=== PATIENT | female | born 1965 | race Caucasian/White ===

== ENCOUNTER 2017-03-02 02:06 | Emergency (ER) | payer OTHER ==
[~2017-03-02] VITALS: Ht 170.1 cm; Wt 93.0 kg
[~2017-03-02 02:06] MED LIST: AUGMENTIN 875-875 MG PO; CELEBREX100 MG PO; LEXAPRO20 MG PO; PERCOCET 325 MG1 TA3 PO; PREDNISONE10 MG PO; PROAIR HFA8.5 GM INH; PYRIDIUM200 M1 PO; REXULTI0.5 MG PO; ULTRAM50 MG PO; ZOFRAN ODT4 MG SL
[2017-03-02 02:11] VITALS: BP 146/72
[2017-03-02] MEDS ORDERED: CLINDAMYCIN HC300 MG PO (03:11)
== END 2017-03-02 03:47 | disposition home or self-care (01) ==
LOC: ED 02:06
DX: K04.7 Periapical abscess without sinus (principal); I10 Essential (primary) hypertension; J45.909 Unspecified asthma, uncomplicated; F32.9 Major depressive disorder, single episode, unspecified; G89.29 Other chronic pain; E66.9 Obesity, unspecified; F17.200 Nicotine dependence, unspecified, uncomplicated; Z79.899 Other long term (current) drug therapy; Z68.34 Body mass index [BMI] 34.0-34.9, adult

== ENCOUNTER → 2018-02-25 | Outpatient (CLI) | payer OTHER ==
[~2018-02-25] MED LIST changes: +CLINDAMYCIN HC300 MG PO
== END | disposition home or self-care (01) ==
LOC: RAD 15:30
DX: M51.36 Other intervertebral disc degeneration, lumbar region (principal)

== ENCOUNTER → 2018-03-23 | Outpatient (CLI) | payer OTHER | END | disposition home or self-care (01) | LOC: MRI 10:48 | DX: M96.1 Postlaminectomy syndrome, not elsewhere classified (principal) ==

== ENCOUNTER 2019-08-29 11:00 | Emergency (ER) | payer OTHER ==
[~2019-08-29] VITALS: Ht 170.1 cm; Wt 90.7 kg
[~2019-08-29 11:00] MED LIST changes: +PREDNISONE10 M1 PO; +PROVENTIL HFA6.7 GM INH
[2019-08-29 11:02] VITALS: BP 138/86
== END 2019-08-29 13:07 | disposition home or self-care (01) ==
LOC: ED 11:00
DX: S80.11XA Contusion of right lower leg, initial encounter (principal); I10 Essential (primary) hypertension; F17.200 Nicotine dependence, unspecified, uncomplicated; Z79.899 Other long term (current) drug therapy; Z90.49 Acquired absence of other specified parts of digestive tract; Z90.710 Acquired absence of both cervix and uterus; W20.8XXA Other cause of strike by thrown, projected or falling object, initial encounter; Y93.89 Activity, other specified; Y92.89 Other specified places as the place of occurrence of the external cause; Y99.8 Other external cause status

== ENCOUNTER 2020-04-04 01:05 | Emergency (ER) | payer OTHER ==
[~2020-04-04] VITALS: Ht 170.1 cm; Wt 90.7 kg
[2020-04-04 01:12] VITALS: BP 148/81
== END 2020-04-04 01:50 | disposition home or self-care (01) ==
LOC: ED 01:05
DX: M71.22 Synovial cyst of popliteal space [Baker], left knee (principal); M79.605 Pain in left leg; I10 Essential (primary) hypertension; Z79.899 Other long term (current) drug therapy; Z87.891 Personal history of nicotine dependence; Z87.442 Personal history of urinary calculi

== ENCOUNTER → 2020-04-04 | Outpatient (CLI) | payer OTHER ==
[~2020-04-04] MED LIST changes: +AVPAK AZITHROM250 MG PO; +PREDNISONE20 M1 PO; +TESSALON PERLE100 MG PO
== END | disposition home or self-care (01) ==
LOC: RAD 07:05
DX: M71.22 Synovial cyst of popliteal space [Baker], left knee (principal)

== ENCOUNTER → 2020-04-12 | Outpatient (CLI) | payer OTHER | END | disposition home or self-care (01) | LOC: MRI 14:55 | DX: S83.242A Other tear of medial meniscus, current injury, left knee, initial encounter (principal); M17.12 Unilateral primary osteoarthritis, left knee; M25.462 Effusion, left knee; X58.XXXA Exposure to other specified factors, initial encounter; Y93.89 Activity, other specified; Y92.89 Other specified places as the place of occurrence of the external cause; Y99.8 Other external cause status ==

== ENCOUNTER → 2020-05-08 | Outpatient (CLI) | payer MEDICARE, MEDICAID | END | disposition home or self-care (01) | LOC: COVID19 09:33 | DX: Z01.818 Encounter for other preprocedural examination (principal); Z11.59 Encounter for screening for other viral diseases ==

== ENCOUNTER 2020-07-02 22:13 | Emergency (ER) | payer MEDICARE, MEDICAID ==
[~2020-07-02] VITALS: Wt 104.3 kg
[2020-07-02 22:23] VITALS: BP 101/43
[2020-07-02] MEDS ORDERED: XTAMPZA ER18 MG PO (22:38)
[2020-07-02] MEDS ORDERED: ATORVASTATIN CA10 M1 PO (22:39)
[2020-07-02] MEDS ORDERED: GABAPENTIN600 MG PO (22:39)
[2020-07-02 23:18] LABS: BASO % 0.2 % (0.0-1.0); EOS # 0.1 10*3/uL (0.0-0.4); EOS % 0.7 % (1.0-4.0); HEMATOCRIT 41.2 % (37.0-47.0); LYMPH % 20.7 % (27.0-41.0); MEAN CELL VOLUME 91.8 fl (81.0-99.0); MEAN CORPUSCULAR HGB 31.2 pg (27.0-31.0); MEAN PLATELET VOLUME 9.8 fl (9.6-12.3); MONO # 0.6 10*3/uL (0.1-1.0); MONO % 4.2 % (3.0-9.0); NEUT # 10.6 10*3/uL (2.3-7.9); NEUT % 73.9 % (47.0-73.0); PLATELET COUNT AUTOMATED 210 10*3/uL (130-400); RED BLOOD COUNT 4.49 10*6/uL (4.10-5.10); RED CELL DISTRI WIDTH 12.5 % (0-14.5); WHITE BLOOD COUNT 14.4 10*3/uL (4.8-10.8)
[2020-07-02 23:32] LABS: ALBUMIN 3.3 gm/dl (3.1-4.5); ALKALINE PHOSPHATASE 80 U/L (45-117); BUN 6 mg/dl (7-24); CHLORIDE 105 mmol/L (98-107); CREATININE 0.83 mg/dL (0.55-1.02); LIPASE 27 U/L (73-393); POTASSIUM 3.6 mmol/L (3.5-5.1); SGOT/AST 15 IU/L (3-35); SGPT/ALT 28 U/L (12-78); SODIUM 138 mmol/L (136-145); TOTAL PROTEIN 7.1 gm/dL (6.4-8.2)
[2020-07-03 00:40] LABS: BILIRUBIN NEGATIVE; BLOOD TRACE-INTACT (NEGATIVE); CLARITY CLEAR (CLEAR); COLOR YELLOW (YELLOW); GLUCOSE NEGATIVE; KETONE NEGATIVE; LEUKO ESTERASE NEGATIVE (NEGATIVE); NITRITE NEGATIVE (NEGATIVE); PH 6.5 (4.5-8.0); UROBILINOGEN 0.2 E.U./dl (0.0-1.0)
[2020-07-03 00:53] LABS: WBC 0-2 wbc/hpf (0-5)
[2020-07-03] MEDS ORDERED: LEVAQUIN750 M1 PO (03:33)
== END 2020-07-03 03:40 | disposition home or self-care (01) ==
LOC: ED 22:13
PROVIDERS: Emergency Medicine
DX: J18.9 Pneumonia, unspecified organism (principal); K59.00 Constipation, unspecified; J45.909 Unspecified asthma, uncomplicated; Z79.899 Other long term (current) drug therapy

== ENCOUNTER → 2020-07-06 | Outpatient (CLI) | payer MEDICARE, MEDICAID ==
[~2020-07-06] MED LIST changes: +ATORVASTATIN CA10 M1 PO; +GABAPENTIN600 MG PO; +LEVAQUIN750 M1 PO; +XTAMPZA ER18 MG PO
== END | disposition home or self-care (01) ==
LOC: COVID19 08:15
PROVIDERS: ATTEND Family Medicine
DX: Z20.828 Contact with and (suspected) exposure to other viral communicable diseases (principal)

== ENCOUNTER → 2021-01-11 | Outpatient (CLI) | payer OTHER ==
[2021-01-11 15:38] LABS: BASO % 0.3 % (0.0-1.0); EOS # 0.3 10*3/uL (0.0-0.4); EOS % 2.2 % (1.0-4.0); HEMATOCRIT 45.8 % (37.0-47.0); LYMPH # 3.6 10*3/uL (1.3-4.4); MEAN CELL VOLUME 90.3 fl (81.0-99.0); MEAN CORPUSCULAR HGB CONC 34.3 g/dl (33.0-37.0); MEAN PLATELET VOLUME 9.6 fl (9.6-12.3); MONO # 0.6 10*3/uL (0.1-1.0); MONO % 4.9 % (3.0-9.0); NEUT % 61.3 % (47.0-73.0); PLATELET COUNT AUTOMATED 225 10*3/uL (130-400); RED BLOOD COUNT 5.07 10*6/uL (4.10-5.10); RED CELL DISTRI WIDTH 12.5 % (0-14.5); WHITE BLOOD COUNT 11.5 10*3/uL (4.8-10.8)
== END | disposition home or self-care (01) ==
LOC: LAB 15:20
PROVIDERS: ATTEND Orthopaedic Surgery
DX: M25.562 Pain in left knee (principal)

== ENCOUNTER 2021-05-20 21:24 | Emergency (ER) | payer OTHER ==
[~2021-05-20] VITALS: Ht 170.1 cm; Wt 108.9 kg
[2021-05-20 21:35] VITALS: BP 156/86
[2021-05-20 22:13] LABS: BASO % 0.3 % (0.0-1.0); EOS # 0.2 10*3/uL (0.0-0.4); EOS % 2.3 % (1.0-4.0); HEMATOCRIT 45.5 % (37.0-47.0); LYMPH # 3.7 10*3/uL (1.3-4.4); LYMPH % 39.1 % (27.0-41.0); MEAN CELL VOLUME 91.7 fl (81.0-99.0); MEAN CORPUSCULAR HGB 31.7 pg (27.0-31.0); MEAN CORPUSCULAR HGB CONC 34.5 g/dl (33.0-37.0); MEAN PLATELET VOLUME 9.7 fl (9.6-12.3); MONO # 0.6 10*3/uL (0.1-1.0); MONO % 6.3 % (3.0-9.0); NEUT # 4.9 10*3/uL (2.3-7.9); NEUT % 51.6 % (47.0-73.0); PLATELET COUNT AUTOMATED 247 10*3/uL (130-400); RED BLOOD COUNT 4.96 10*6/uL (4.10-5.10); RED CELL DISTRI WIDTH 12.4 % (0-14.5); WHITE BLOOD COUNT 9.5 10*3/uL (4.8-10.8)
[2021-05-20 22:27] LABS: ALBUMIN 3.6 gm/dl (3.1-4.5); ALKALINE PHOSPHATASE 90 U/L (45-117); BUN 5 mg/dl (7-24); CHLORIDE 106 mmol/L (98-107); CREATININE 0.77 mg/dL (0.55-1.02); POTASSIUM 3.8 mmol/L (3.5-5.1); SGOT/AST 22 IU/L (3-35); SGPT/ALT 36 U/L (12-78); SODIUM 138 mmol/L (136-145); TOTAL PROTEIN 7.4 gm/dL (6.4-8.2)
== END 2021-05-20 23:40 | disposition home or self-care (01) ==
LOC: ED 21:24
PROVIDERS: Internal Medicine
DX: G89.29 Other chronic pain (principal); M25.562 Pain in left knee; F17.200 Nicotine dependence, unspecified, uncomplicated; Z79.2 Long term (current) use of antibiotics; Z79.899 Other long term (current) drug therapy; Z90.49 Acquired absence of other specified parts of digestive tract; Z90.711 Acquired absence of uterus with remaining cervical stump

== ENCOUNTER 2022-01-10 23:06 | Emergency (ER) | payer OTHER ==
[~2022-01-10] VITALS: Ht 165.1 cm; Wt 113.4 kg
[2022-01-10 23:17] VITALS: BP 140/69
[2022-01-10] MEDS ORDERED: NYSTATIN1 EAC2 MC (23:46)
[2022-01-10] MEDS ORDERED: FLUONAZOLE150 M1 PO (23:46)
[2022-01-10] MEDS ORDERED: AUGMENTIN 875-875 MG PO (23:46)
[2022-01-10] MEDS ORDERED: VIBRAMYCIN100 MG PO (23:46)
== END 2022-01-10 23:49 | disposition home or self-care (01) ==
LOC: ED 23:06
DX: N61.0 Mastitis without abscess (principal); B48.8 Other specified mycoses

== ENCOUNTER 2022-03-21 22:34 | Emergency (ER) | payer OTHER ==
[~2022-03-21] VITALS: Ht 172.7 cm; Wt 99.8 kg
[~2022-03-21 22:34] MED LIST changes: +FLUONAZOLE150 M1 PO; +NYSTATIN1 EAC2 MC; +VIBRAMYCIN100 MG PO
[2022-03-21 22:44] VITALS: BP 127/99
== END 2022-03-22 01:15 | disposition left against medical advice (07) ==
LOC: ED 22:34
DX: M54.50 Low back pain, unspecified (principal); Z79.899 Other long term (current) drug therapy; Z90.710 Acquired absence of both cervix and uterus; Z90.49 Acquired absence of other specified parts of digestive tract; F17.200 Nicotine dependence, unspecified, uncomplicated

== ENCOUNTER 2022-07-10 19:00 | Emergency (ER) | payer OTHER ==
[~2022-07-10] VITALS: Ht 170.1 cm; Wt 108.9 kg
[2022-07-10 19:02] VITALS: BP 155/85
== END 2022-07-10 23:46 | disposition home or self-care (01) ==
LOC: ED 19:00
DX: U07.1 COVID-19 (principal); E66.9 Obesity, unspecified; F17.200 Nicotine dependence, unspecified, uncomplicated; Z79.2 Long term (current) use of antibiotics; Z79.899 Other long term (current) drug therapy; Z90.710 Acquired absence of both cervix and uterus; Z90.49 Acquired absence of other specified parts of digestive tract; Z98.890 Other specified postprocedural states; Z68.30 Body mass index [BMI] 30.0-30.9, adult

== ENCOUNTER 2022-07-21 21:35 | Emergency (ER) | payer OTHER ==
[2022-07-21 21:40] VITALS: BP 112/58
[2022-07-21 22:32] LABS: BASO % 0.5 % (0.0-1.0); EOS # 0.2 10*3/uL (0.0-0.4); EOS % 2.3 % (1.0-4.0); HEMATOCRIT 44.3 % (37.0-47.0); LYMPH # 3.4 10*3/uL (1.3-4.4); LYMPH % 38.7 % (27.0-41.0); MEAN CELL VOLUME 88.6 fl (81.0-99.0); MEAN CORPUSCULAR HGB 31.4 pg (27.0-31.0); MEAN CORPUSCULAR HGB CONC 35.4 g/dl (33.0-37.0); MEAN PLATELET VOLUME 9.8 fl (9.6-12.3); MONO # 0.6 10*3/uL (0.1-1.0); MONO % 6.5 % (3.0-9.0); NEUT # 4.6 10*3/uL (2.3-7.9); NEUT % 51.8 % (47.0-73.0); PLATELET COUNT AUTOMATED 258 10*3/uL (130-400); WHITE BLOOD COUNT 8.9 10*3/uL (4.8-10.8)
[2022-07-21 22:53] LABS: ALKALINE PHOSPHATASE 98 U/L (45-117); BUN 15 mg/dl (7-24); CHLORIDE 108 mmol/L (98-107); CREATININE 0.74 mg/dL (0.55-1.02); POTASSIUM 3.3 mmol/L (3.5-5.1); SGOT/AST 16 IU/L (3-35); SGPT/ALT 35 U/L (12-78); SODIUM 138 mmol/L (136-145); TOTAL PROTEIN 7.2 gm/dL (6.4-8.2)
== END 2022-07-22 01:48 | disposition home or self-care (01) ==
LOC: ED 21:35
PROVIDERS: Nurse Practitioner Family
DX: R11.2 Nausea with vomiting, unspecified (principal); R19.7 Diarrhea, unspecified; Z79.899 Other long term (current) drug therapy; Z90.710 Acquired absence of both cervix and uterus; Z90.49 Acquired absence of other specified parts of digestive tract; Z87.891 Personal history of nicotine dependence

== ENCOUNTER 2023-04-14 01:18 | Emergency (ER) | payer OTHER ==
[~2023-04-14] VITALS: Wt 122.5 kg
[2023-04-14 01:26] VITALS: BP 190/98
== END 2023-04-14 02:34 | disposition home or self-care (01) ==
LOC: ED 01:18
DX: M17.12 Unilateral primary osteoarthritis, left knee (principal); I10 Essential (primary) hypertension; Z87.442 Personal history of urinary calculi; Z90.49 Acquired absence of other specified parts of digestive tract; Z90.710 Acquired absence of both cervix and uterus; Z98.890 Other specified postprocedural states; F17.200 Nicotine dependence, unspecified, uncomplicated

== ENCOUNTER 2023-04-25 23:51 | Emergency (ER) | payer OTHER ==
[2023-04-25 23:55] VITALS: BP 138/78
[2023-04-26] MEDS ORDERED: AMOX-CLAV 875-1 EACH PO (00:29)
== END 2023-04-26 00:51 | disposition home or self-care (01) ==
LOC: ED 23:51
DX: S61.431A Puncture wound without foreign body of right hand, initial encounter (principal); Z90.710 Acquired absence of both cervix and uterus; Z90.49 Acquired absence of other specified parts of digestive tract; Z98.890 Other specified postprocedural states; F17.200 Nicotine dependence, unspecified, uncomplicated; W54.0XXA Bitten by dog, initial encounter; Y93.89 Activity, other specified; Y92.009 Unspecified place in unspecified non-institutional (private) residence as the place of occurrence of the external cause; Y99.8 Other external cause status

== ENCOUNTER 2023-11-01 20:52 | Emergency (ER) | payer OTHER ==
[~2023-11-01 20:52] MED LIST changes: +AMOX-CLAV 875-1 EACH PO
[2023-11-01 21:25] VITALS: BP 165/102
== END 2023-11-01 22:00 | disposition left against medical advice (07) ==
LOC: ED 20:52
DX: R42 Dizziness and giddiness (principal); H57.10 Ocular pain, unspecified eye; R07.0 Pain in throat; M79.629 Pain in unspecified upper arm; Z53.21 Procedure and treatment not carried out due to patient leaving prior to being seen by health care provider

== ENCOUNTER 2024-01-11 19:37 | Emergency (ER) | payer OTHER ==
[~2024-01-11] VITALS: Ht 170.1 cm; Wt 122.5 kg
[2024-01-11 19:58] VITALS: BP 146/94
[2024-01-11] MEDS ORDERED: SODIUM CHLORIDE 0.9% 1,000 ML IV ONE (20:05)
[2024-01-11] MEDS ORDERED: HYDROmorphONE Hydrochloride 0.5 MG/0.5 ML SYRINGE IV ONE (20:15)
[2024-01-11] MEDS ORDERED: Ondansetron Hydrochloride 4 MG/2 ML VIAL IV ONE (20:15)
[2024-01-11 20:25] LABS: BASO % 0.3 % (0.0-1.0); EOS # 0.2 10*3/uL (0.0-0.4); EOS % 1.5 % (1.0-4.0); HEMATOCRIT 44.1 % (37.0-47.0); LYMPH # 3.5 10*3/uL (1.3-4.4); LYMPH % 25.9 % (27.0-41.0); MEAN CELL VOLUME 90.2 fl (81.0-99.0); MEAN CORPUSCULAR HGB 30.7 pg (27.0-31.0); MEAN PLATELET VOLUME 9.6 fl (9.6-12.3); MONO # 0.7 10*3/uL (0.1-1.0); MONO % 5.4 % (3.0-9.0); NEUT % 66.6 % (47.0-73.0); PLATELET COUNT AUTOMATED 226 10*3/uL (130-400); RED BLOOD COUNT 4.89 10*6/uL (4.10-5.10); RED CELL DISTRI WIDTH 12.6 % (0-14.5); WHITE BLOOD COUNT 13.5 10*3/uL (4.8-10.8)
[2024-01-11 20:44] LABS: ALKALINE PHOSPHATASE 93 U/L (46-116); BUN 8 mg/dl (9-23); CHLORIDE 105 mmol/L (98-107); LIPASE 24 U/L (12-53); POTASSIUM 3.3 mmol/L (3.4-5.1); SGPT/ALT 33 U/L (5-49); TOTAL PROTEIN 7.7 gm/dL (6.0-8.0)
[2024-01-11 21:07] LABS: BILIRUBIN 1+ (Negative); BLOOD Trace-Lysed (Negative); CLARITY Clear (Clear); COLOR Dark Yellow (Yellow); GLUCOSE Negative (Negative); KETONE Negative (Negative); LEUKO ESTERASE Trace (Negative); NITRITE Positive (Negative); SPECIFIC GRAVITY 1.015 (1.001-1.030)
[2024-01-11 21:23] LABS: BACTERIA 1+; MUCOUS 2+
[2024-01-11] MEDS ORDERED: Ceftriaxone Sodium 1 GM/10 ML SYR IV ONE (22:25)
[2024-01-11] MEDS ORDERED: ONDANSETRON4 MG SL (22:25)
[2024-01-11] MEDS ORDERED: OMNICEF300 MG PO (22:25)
[2024-01-11] MEDS ORDERED: POTASSIUM CHLORIDE 20 MEQ TAB PO ONE (22:25)
== END 2024-01-11 23:00 | disposition home or self-care (01) ==
LOC: ED 19:37
PROVIDERS: Internal Medicine; Nurse Practitioner Family
DX: N39.0 Urinary tract infection, site not specified (principal); K76.0 Fatty (change of) liver, not elsewhere classified; E87.6 Hypokalemia; R91.1 Solitary pulmonary nodule; R16.1 Splenomegaly, not elsewhere classified; J45.909 Unspecified asthma, uncomplicated; M19.90 Unspecified osteoarthritis, unspecified site; F32.A Depression, unspecified; I10 Essential (primary) hypertension; F17.210 Nicotine dependence, cigarettes, uncomplicated; Z90.49 Acquired absence of other specified parts of digestive tract; Z98.890 Other specified postprocedural states; Z90.710 Acquired absence of both cervix and uterus

== ENCOUNTER → 2024-01-19 | Outpatient (CLI) | payer OTHER ==
[~2024-01-19] MED LIST changes: +OMNICEF300 MG PO; +ONDANSETRON4 MG SL
== END | disposition home or self-care (01) ==
LOC: LAB 17:45
PROVIDERS: ATTEND Internal Medicine Critical Care Medicine
DX: J30.89 Other allergic rhinitis (principal); R91.8 Other nonspecific abnormal finding of lung field; J45.20 Mild intermittent asthma, uncomplicated; R53.83 Other fatigue; Z87.891 Personal history of nicotine dependence; Z68.41 Body mass index [BMI] 40.0-44.9, adult

== ENCOUNTER 2025-10-11 20:22 | Emergency (ER) | payer OTHER ==
[~2025-10-11] VITALS: Ht 170.1 cm; Wt 104.3 kg
[~2025-10-11 20:22] MED LIST changes: +ALBUTEROL HFA 90 MCG; +AMLODIPINE BESY10 MG PO; +CYMBALTA20 M1 PO; +GABAPENTIN100 M2 PO; +GABAPENTIN400 MG PO; +HUMALOG100 UNIT/1 SC; +LANTUS SOL100 UNIT/1 SC; +REXULTI1 MG PO; +TERCONAZOLE45 GM V; +TIZANIDINE HCL4 MG PO
[2025-10-11 20:29] VITALS: BP 106/73
[2025-10-11] MEDS ORDERED: Ondansetron Hydrochloride 4 MG TAB SL ONE (21:55)
== END 2025-10-11 22:01 | disposition home or self-care (01) ==
LOC: ED 20:22
DX: J10.1 Influenza due to other identified influenza virus with other respiratory manifestations (principal); R53.1 Weakness; I10 Essential (primary) hypertension; E11.9 Type 2 diabetes mellitus without complications; Z20.822 Contact with and (suspected) exposure to COVID-19; Z98.890 Other specified postprocedural states; Z90.49 Acquired absence of other specified parts of digestive tract; Z90.710 Acquired absence of both cervix and uterus